=== PATIENT | female | born 1965 | race African-American/Black ===

== ENCOUNTER 2024-08-27 01:49 | Emergency (ER) | payer MEDICAID, OTHER ==
[~2024-08-27] VITALS: Ht 165.1 cm; Wt 108.6 kg
--- NOTE | 2024-08-27 02:33 | ED.PDOC ---
GI ASSESSMENT HPI Comments 59 year old female presents to the ED with a chief complaint of abdominal pain onset yesterday (08/26/24). Patient states she began experiencing epigastric pain radiates to mid back as well as bilateral flank region since eating dinner. Denies any PMHx as well as shortness of breath, nausea, vomiting, diarrhea, headache, dizziness. No other symptoms or modifying factors present at this time. Time Seen by MD: 02:30 Reviewed Notes: Medications, Allergies Allergies: Coded Allergies: NO KNOWN ALLERGIES (Unverified , 08/27/24) Home Meds Active Scripts Gabapentin (Once-Daily) (Gabapentin) 300 Mg Tab, 300 MG PO Q6HP PRN, #30 TAB Prov:ÁNGELA RUFFIN MD 08/27/24 Famotidine (PEPCID TABLET) 20 Mg Tb, 1 TAB PO BID for 90 Days, #180 TAB 5 Refills Prov:ÁNGELA RUFFIN MD 08/27/24 Information Source: Patient Timing: Hours Duration: Since onset Prehospital treatment: None Quality: Sharp Vomitus: None Severity: Moderate Recent: None Recent Hx of: None Pain Location: Epigastric Modifying Factors: Nothing Associated sign and symptoms: Abdominal Pain Past Medical History PAST MEDICAL HISTORY: Denies Surgical History: Denies all surgeries 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 History Family History Family History: Reviewed,noncontributory to illness, No family hx of Cancer, No family hx of DM, No family hx of Heart geoff, No family hx of HTN, No family hx ofKidney geoff, No family hx of Liver geoff, No family hx of Lung geoff, No family hx of Stroke Social History Smoker: Non-Smoker Alcohol: Denies ETOH Use Drugs: Denies Drug Use Lives In: Home Constitutional: denies: chills, diaphoresis, fatigue, fever, malaise, sweats, weakness, others EENTM: denies: blurred vision, double vision, ear bleeding, ear discharge, ear drainage, ear pain, ear ringing, eye pain, eye redness, hearing loss, mouth pain, mouth swelling, nasal discharge, nose bleeding, nose congestion, nose pain, photophobia, tearing, throat pain, throat swelling, voice changes, others Respiratory: denies: cough, hemoptysis, orthopnea, SOB at rest, shortness of breath, SOB with excertion, stridor, wheezing, others Cardiovascular: denies: chest pain, dizzy spells, diaphoresis, Dyspnea on exertion, edema, irregular heart beat, left arm pain, lightheadedness, palpitations, PND, syncope, others Gastrointestinal: reports: abdominal pain; denies: abdomen distended, blood streaked bowels, constipated, diarrhea, dysphagia, difficulty swallowing, hematemesis, melena, nausea, poor appetite, poor fluid intake, rectal bleeding, rectal pain, vomiting, others Genitourinary: denies: abnormal vagina bleeding, burning, dyspareunia, dysuria, flank pain, frequency, hematuria, incontinence, pain, , vagina d ischarge, urgency, others Neurological: denies: dizziness, fainting, headache, left sided numbness, left sided weakness, numbness, paresthesia, pre-existing deficit, right sided numbness, right sided weakness, seizure, speech problems, tingling, tremors, weakness, others Musculoskeletal: reports: back pain; denies: gout, joint pain, joint swelling, muscle pain, muscle stiffness, neck pain, others Integumetry: denies: bruises, change in color, change in hair/nails, dryness, laceration, lesions, lumps, rash, wounds, others Allergic/Immunocompromised: denies: Difficulty Healing, Frequent Infections, Hives, Itching, others Hematologic/Lymphatic: denies: anemia, blood clots, easy bleeding, easy bruising, swollen glands, others Endocrine: denies: excessive hunger, excessive sweating, excessive thirst, excessive urination, flushing, intolerance to cold, intolerance to heat, unexplained weight gain, unexplained weight loss, others Psychiatric: denies: anxiety, bipolar disorder, depression, hopeless, panic disorder, schizophrenia, sleepless, suicidal, others All Other Systems: Reviewed and Negative Physical Exam General Appearance: No Apparent Distress, Normal HEENT: Normal ENT Inspection, Pharynx Normal, TMs Normal Neck: Full Range of Motion, Non-Tender, Normal, Normal Inspection Respiratory: Chest Non-Tender, Lungs Clear, No Accessory Muscle Use, No Re spiratory Distress, Normal Breath Sounds Cardiovascular: No Edema, No JVD, No Murmur, No Gallop, Normal Peripheral Pulses, Regular Rate/Rhythm Breast Exam: Deferred Gastrointestinal: No Organomegaly, Non Tender, No Pulsatile Mass, Normal Bowel Sounds, Soft Genitalia: Deferred Pelvic: Deferred Rectal: Deferred Extremities: No calf tenderness, Normal capillary refill, Normal inspection, Normal range of motion, Non-tender, No pedal edema Musculoskeletal : Apperance: Normal Neurologic: Alert, linux programmer II-XII nml as Tested, No Motor Deficits, Normal Affect, Normal Mood, No Sensory Deficits Cerebellar Function: Normal Reflexes: Normal Skin: Dry, Normal Color, Warm Lymphatic: No Adenopathy Was a procedure done? Was a procedure done?: No GI differential Dx Differential Diagnosis: Cholangitis, Cholecystitis, Diverticular disease, Gastritis/PUD, Gastroenteritis, GI hemorrhage, Pancreatitis, Other X-Ray, Labs, Meds, VS Vital Signs Date Time Temp Pulse Resp B/P (MAP) Pulse Ox O2 Delivery O2 Flow Rate FiO2 08/27/24 05:31 98.3 85 18 181/87 (118) 96 98.3 08/27/24 03:05 85 16 172/90 (117) 96 08/27/24 03:05 85 16 96 Room Air* 0 21 08/27/24 02:10 98.3 85 16 172/90 (117) 96 98.3 Lab Test 08/27/24 03:27 08/27/24 02:35 08/27/24 02:19 Range/Units Troponin I High Sensitivity 4 4 </=34 ng/L White Blood Count 12.9 H 4.4-10.8 10^3/uL Red Blood Count 5.19 4.0-5.20 10^6/uL Hemoglobin 14.0 12.2-16.2 g/dL Hematocrit 41.4 36.0-46.0 % Mean Corpuscular Volume 79.7 L 80.0-100.0 fL Mean Corpuscular Hemoglobin 27.0 L 28.0-32.0 pg Mean Corpuscular Hemoglobin Concent 33.9 32.0-36.0 g/dL Red Cell Distribution Width 14.6 H 11.8-14.3 % Platelet Count 215 140-450 10^3/uL Mean Platelet Volume 9.2 6.9-10.8 fL Neutrophils (%) (Auto) 43.8 37.0-80.0 % Lymphocytes (%) (Auto) 42.0 10.0-50.0 % Monocytes (%) (Auto) 10.8 0.0-12.0 % Eosinophils (%) (Auto) 2.8 0.0-7.0 % Basophils (%) (Auto) 0.6 0.0-2.0 % Neutrophils # (Auto) 5.6 1.6-8.6 10 ^3/uL Lymphocytes # (Auto) 5.4 0.4-5.4 10 ^3/uL Monocytes # (Auto) 1.4 H 0-1.3 10 ^3/uL Eosinophils # (Auto) 0.4 0-0.8 10 ^3/uL Basophils # (Auto) 0.1 0-0.2 10 ^3/uL Nucleated Red Blood Cells 0.1 % D-Dimer, Quantitative 0.46 0.0-0.49 mg/L FEU Sodium Level 137 136-145 mmol/L Potassium Level 4.1 3.5-5.1 mmol/L Chloride Level 101 98-107 mmol/L Carbon Dioxide Level 27 20-31 mmol/L Anion Gap 9 5-15 Blood Urea Nitrogen 24 H 9-23 mg/dL Creatinine 1.12 H 0.550-1.02 mg/dL Glomerular Filtration Rate Calc 57 >90 mL/min BUN/Creatinine Ratio 21.4 H 10.0-20.0 Serum Glucose 167 H 74-106 mg/dL Calcium Level 9.8 8.7-10.4 mg/dL Total Bilirubin 0.4 0.2-1.0 mg/dL Aspartate Amino Transferase (AST) 52 H 13-40 U/L Alanine Aminotransferase (ALT) 61 H 7-40 U/L Alkaline Phosphatase 68 46-116 U/L Total Protein 8.2 5.7-8.2 g/dL Albumin 4.7 3.2-4.8 g/dL Lipase 56 H 12-53 U/L POC Glucose 154 H 70-106 mg/dl Current Medications Medications (Trade) Dose Ordered Sig/Odette Route Start Time Stop Time Status Last Admin Ondansetron HCl (Zofran Po) 8 mg ONCE ONCE PO 08/27/24 02:45 08/27/24 02:46 DC 08/27/24 03:01 Al Hydrox/Mg Hydrox/Simethicone (Maalox Plus) 30 ml ONCE ONCE PO 08/27/24 02:45 08/27/24 02:46 DC 08/27/24 03:00 Famotidine (Pepcid Tablet) 20 mg ONCE ONCE PO 08/27/24 02:45 08/27/24 02:46 DC 08/27/24 03:01 Time of 1ST Reevaluation: 03:00 Reevaluation 1ST: Unchanged Patient Education/Counseling: Diagnosis, Treatment, Prognosis Family Education/Counseling: No Family Present Additional Information The following tests were ordered, and results were reviewed by me: CBC,CMP, LIPASE, UA, TROP -x3, D-DIMER I discussed treatment and results with medical personnel and: patient Comprehensive systems review obtained and negative except for what is stated in the HPI. Departure 1 Departure Time of Disposition: 05:42 Impression: Primary Impression: Back pain Additional Impression: Gas pain Disposition: 01 HOME / SELF CARE / HOMELESS Condition: Stable e-Prescriptions Gabapentin (Once-Daily) (Gabapentin) 300 Mg Tab 300 MG PO Q6HP PRN, #30 TAB Prov: ÁNGELA RUFFIN MD 08/27/24 Famotidine (PEPCID TABLET) 20 Mg Tb 1 TAB PO BID for 90 Days, #180 TAB 5 Refills Prov: ÁNGELA RUFFIN MD 08/27/24 Discharged With: Self Comments Patient denies abdominal pain on re-evaluation. Abdomen is nontender. LFTs and pancreas of borderline elevated. I recommended that the patient follow up with her PCP and she may need outpatient ultrasound to check for gallstones Critical Care Note Critical Care Time?: No Stability Stability form required: No I personally scribed for ÁNGELA RUFFIN MD ([email or web address]) on 08/27/24 at 02:33. Electronically submitted by Zuleima Zaragoza ([email or web address]). I personally scribed for ÁNGELA RUFFIN MD ([email or web address]) on 08/27/24 at 02:35. Electronically submitted by Zuleima Zaragoza ([email or web address]). ÁNGELA RUFFIN MD August 27, 2024 02:33
[2024-08-27 02:47] LABS: Basophils # (auto) 0.1 10 ^3/uL (0-0.2); Basophils % (auto) 0.6 % (0.0-2.0); Eosinophils # (auto) 0.4 10 ^3/uL (0-0.8); Eosinophils % (auto) 2.8 % (0.0-7.0); Hematocrit 41.4 % (36.0-46.0); Lymphocytes # (auto) 5.4 10 ^3/uL (0.4-5.4); Mean Corpuscular Hgb Conc. 33.9 g/dL (32.0-36.0); Mean Corpuscular Volume 79.7 fL (80.0-100.0); Monocytes # (auto) 1.4 10 ^3/uL (0-1.3); Monocytes % (auto) 10.8 % (0.0-12.0); Neutrophils # (auto) 5.6 10 ^3/uL (1.6-8.6); Neutrophils % (auto) 43.8 % (37.0-80.0); Nucleated Red Blood Cells % 0.1 %; Platelet Count (auto) 215 10^3/uL (140-450); Red Blood Cells 5.19 10^6/uL (4.0-5.20); Red Cell Distribution Width 14.6 % (11.8-14.3); White Blood Cell 12.9 10^3/uL (4.4-10.8)
[2024-08-27] MEDS: MAALOX PLUS or MAALOX 30 ML PO ONE (03:00)
[2024-08-27] MEDS: FAMOTIDINE 20 MG TAB PO ONE (03:01)
[2024-08-27] MEDS: ONDANSETRON ODT 4 MG TAB PO ONE (03:01)
[2024-08-27 03:03] LABS: Alkaline Phosphatase 68 U/L (46-116); Calcium 9.8 mg/dL (8.7-10.4); Chloride 101 mmol/L (98-107)
[2024-08-27 03:04] LABS: Albumin 4.7 g/dL (3.2-4.8); Anion Gap 9 (5-15); BUN/Creatinine Ratio 21.4 (10.0-20.0); Bilirubin, Total 0.4 mg/dL (0.2-1.0); Carbon Dioxide 27 mmol/L (20-31); Potassium 4.1 mmol/L (3.5-5.1); Sodium 137 mmol/L (136-145)
[2024-08-27 03:05] VITALS: PULSE 85; RESP 16; O2SAT 96
[2024-08-27 03:25] LABS: Alanine Aminotransferase 61 U/L (7-40); Aspartate Aminotransferase 52 U/L (13-40); Blood Urea Nitrogen 24 mg/dL (9-23); Glucose 167 mg/dL (74-106); Lipase 56 U/L (12-53); Total Protein 8.2 g/dL (5.7-8.2)
[2024-08-27] MEDS ORDERED: GABA300T4 PO (05:20)
[2024-08-27] MEDS ORDERED: FAMO20TA10 PO (05:20)
[2024-08-27 05:31] VITALS: BP 181/87; PULSE 85; RESP 18; TEMP 98.3; O2SAT 96
--- NOTE | 2024-08-28 14:40 | ECG ---
[facility] Test Date: 2024-08-27 Test Time: 02:16:40 Pat Name: BRENDA SOLANO Department: ER Room: Gender: F Printing Assistant: : 1965 Requested By: ÁNGELA RUFFIN Order Number: [id number] Reading MD: Rocky Garcia Measurements Intervals [place] Rate: 81 P: 102 MD: 184 QRS: 77 QRSD: 84 T: -47 QT: 442 QTc: 513 Interpretive Statements Sinus rhythm Nonspecific T abnormalities, diffuse leads Prolonged QT interval Electronically Signed On 08-29-2024 20:58:07 PDT by Rocky Garcia Please click the below link to view image of tracing.
== END 2024-08-27 05:36 | disposition home or self-care (01) ==
LOC: ER 01:49
DX: M54.9 Dorsalgia, unspecified (principal); R14.1 Gas pain; R10.13 Epigastric pain; Z79.899 Other long term (current) drug therapy
CPT/HCPCS: 36415; 80053; 82947; 83690; 84484; 85025; 85379; 93005; 99284; Q0162; 82962